=== PATIENT | female | born 1975 | race Caucasian/White ===

== ENCOUNTER 2018-06-06 10:13 | Inpatient (IN) | payer BC ==
[~2018-06-06] VITALS: Ht 165.1 cm; Wt 116.3 kg
[~2018-06-06 10:13] MED LIST: CELEXA40 MG PO; METOPROLOL SUCC25 MG PO
[2018-06-06] MEDS ORDERED: MORPHINE SULFATE 2 MG/ML SYR IV STA (10:30)
[2018-06-06] MEDS ORDERED: ACETAMINOPHEN 1000 MG/100 ML IV STA (10:30)
[2018-06-06] MEDS ORDERED: CLINDAMYCIN PHOS 900MG/ D5W 50 50 ML IV STA (10:49)
[2018-06-06 10:59] LABS: BASOPHILS % 0.2 % (0.0-1.0); EOSINOPHILS # (AUTO) 0.1 (0.0-0.4); EOSINOPHILS % 0.7 % (0.0-6.0); HEMATOCRIT 36.9 % (34.2-44.1); HEMOGLOBIN 12.6 g/dL (12.0-16.0); LYMPHOCYTES % 10.8 % (18.0-39.1); MEAN CORPUSCULAR HEMOGLOBIN 30.3 pg (28-32); MEAN CORPUSCULAR HGB CONC 34.1 g/dL (31-35); MEAN CORPUSCULAR VOLUME 88.7 fL (81-99); MONOCYTES % 11.2 % (4.4-11.3); NEUTROPHILS # (AUTO) 6.8 (2.1-6.9); NEUTROPHILS % 76.6 % (38.7-80.0); PLATELET COUNT 229 x10e3/uL (140-360); RED BLOOD COUNT 4.16 x10e6/uL (3.6-5.1); RED CELL DISTRIBUTION WIDTH 13.2 % (11.7-14.4)
[2018-06-06] MEDS ORDERED: DEXAMETHASONE SOD PHOS 10 MG/1 ML VIAL IV ONE (11:00)
[2018-06-06 11:16] LABS: ALANINE AMINOTRANSFERASE 7 IU/L (0-55); ALBUMIN 3.1 g/dL (3.5-5.0); ALKALINE PHOSPHATASE 52 IU/L (40-150); ANION GAP 12.3 mmol/L (8-16); BLOOD UREA NITROGEN 6 mg/dL (7-26); BUN/CREATININE RATIO 8 (6-25); CALCIUM 8.8 mg/dL (8.4-10.2); CARBON DIOXIDE 24 mmol/L (22-29); CHLORIDE 101 mmol/L (98-107); CREATININE, SERUM 0.79 mg/dL (0.57-1.11); EST GLOMERULAR FILTRATION RATE > 60 ML/MIN (60-); GLUCOSE 106 mg/dL (74-118); POTASSIUM 3.3 mmol/L (3.5-5.1); SODIUM 134 mmol/L (136-145)
[2018-06-06] MEDS ORDERED: SODIUM CHLORIDE 0.9% 1000ML 1,000 ML IV SCH (11:45)
[2018-06-06 12:24] LABS: BILIRUBIN,URINE 2+ (NEGATIVE); CLARITY,URINE HAZY (CLEAR); COLOR,URINE YELLOW (YELLOW); KETONES,URINE 1+ (NEGATIVE); LEUKOCYTE ESTERASE ,URINE NEGATIVE (NEGATIVE); NITRITE,URINE NEGATIVE (NEGATIVE); PROTEIN,URINE DIPSTICK 1+ (NEGATIVE); URINE UROBILINOGEN 0.2 mg/dL (0.2 - 1)
[2018-06-06 12:33] LABS: EPITHELIAL CELLS,URINE MANY /LPF
[2018-06-06 12:35] LABS: WBC,URINE (MAN) 0-5 /HPF (0-5)
[2018-06-06 12:36] LABS: BACTERIA,URINE FEW /HPF; CALCIUM OXALATE CRYSTALS,UR FEW (FEW); RBC,URINE 0-5 /HPF (0-5)
[2018-06-06 12:37] LABS: MUCUS,URINE FEW (RARE)
--- NOTE | 2018-06-06 12:53 | Diagnostic Imaging Report ---
ADDENDUM #1 The preliminary report was reviewed and a final report issued by Dr. Garcia neuroradiologist on 06/06/2018 at 4:46 PM. Signed by: Dr. Lorie Garcia M.D. on 06/06/2018 4:46 PM ORIGINAL REPORT EXAMINATION: CT of the neck with contrast HISTORY: 43-year-old female with right lower jaw/neck swelling. Rule out mass. COMPARISON: None TECHNIQUE: Multidetector helical axial images were obtained from the sternal notch through the skull base during intravenous infusion of iodinated contrast material. Images were reconstructed using soft tissue and bone algorithms and were viewed in multiplanar format. Intravenous contrast: 100 cc of Isovue-370. Dose modulation, iterative reconstruction, and/or weight based adjustment of the mA/kV was utilized to reduce the radiation dose to as low as reasonably achievable. FINDINGS: A moderate-sized periapical lucency surrounds the roots of the right second mandibular molar without buccal cortical disruption. The periapical abscess appears to be contiguous with the right inferior alveolar foramen. Multiple teeth are missing and the remaining dentition is carious. The soft tissue overlying the buccal cortex of the right mandible is enhancing, but there is no discrete fluid collection. Diffuse fat stranding and soft tissue swelling throughout the right premaxillary, right perimandibular and right submandibular soft tissues. Inflammation also extends into the proximal right neck. The right masseter is slightly enlarged compared to the left, likely secondary to surrounding inflammatory changes. Mass: None. Nodes: Scattered reactive lymphadenopathy along the right internal jugular chain. For example, a 12 mm round enhancing lymph node in the level IIA. Sinuses: Retention cyst in the left maxillary sinus may be odontogenic in nature secondary to eruption of the left second and third maxillary molar roots to the floor of the sinus. Salivary glands: Parotid and submandibular glands unremarkable. Pharynx: Unremarkable. Larynx: Unremarkable. Thyroid gland: 11 mm hypodense nodule is superior pole of the right thyroid lobe. Upper esophagus: Unremarkable. Blood vessels: Unremarkable. Bones: Unremarkable. IMPRESSION: Right-sided facial cellulitis is likely secondary to periapical abscess surrounding the right second mandibular molar. No drainable fluid collection. Preliminary report dictated by Dr. Roxy Varma, Neuroradiology Fellow. A final report by the attending radiologist will follow. Signed by: Roxy Varma MD on 06/06/2018 12:53 PM
[2018-06-06] MEDS ORDERED: SODIUM CHLORIDE 0.9% 50ML 50 ML ONE (14:50)
[2018-06-06] MEDS ORDERED: IOPAMIDOL 370 MG/ML 200 ML INFUS..BTL INJ ONE (14:50)
[2018-06-06] MEDS: CEFEPIME HCL 1 GM VIAL IV SCH (15:14)
[2018-06-06] MEDS: VANCOMYCIN 1GM/NS 250 ML 250 ML IV SCH (15:14)
[2018-06-06 15:50] VITALS: BP 141/90
[2018-06-06 15:59] VITALS: BP 141/90
[2018-06-06 16:00] VITALS: BP 141/90
[2018-06-06 16:46] VITALS: BP 141/90
[2018-06-06] MEDS: ONDANSETRON HCL INJ 2 MG/ML VIAL IV PRN ×2 (16:52→22:26)
[2018-06-06] MEDS: MORPHINE SULFATE 2 MG/ML SYR IV PRN ×2 (16:52→22:26)
[2018-06-06 21:17] VITALS: BP 120/70
[2018-06-07 00:19] VITALS: BP 121/64
[2018-06-07] MEDS: MORPHINE SULFATE 2 MG/ML SYR IV PRN ×2 (03:38→09:17)
[2018-06-07 05:07] VITALS: BP 134/70
[2018-06-07 08:00] VITALS: BP 151/82
--- NOTE | 2018-06-07 08:55 | History and Physical ---
PRIMARY CARE PHYSICIAN: Dr. Dc CHIEF COMPLAINT: Right jaw swelling and pain. HISTORY OF PRESENT ILLNESS: This is a 43-year-old woman with a history of cigarette use, now developing right jaw swelling and pain for the past 3 days. She went to a dentist. The dentist was unable to gain much access to the dental caries and recommend to go to the hospital due to the swelling and infection. The patient admits to having dental caries on the right side for quite some time. She has had some subjective fever and chills at home and some nausea. She has been referred for further evaluation and management. PAST MEDICAL HISTORY: Hypertension, cigarette use, mood disorder. PAST SURGICAL HISTORY: , back injections and leg surgery. ALLERGIES: PER ELECTRONIC MEDICAL RECORD. FAMILY/SOCIAL HISTORY: The patient is . She has 2 children. No alcohol or illicits. Smokes a pack of cigarettes per day. MEDICATIONS: Per electronic medical record. REVIEW OF SYSTEMS: Denies any dizziness, chest pain, shortness of breath, back pain, headache, blurred vision or cough. PHYSICAL EXAMINATION VITAL SIGNS: Have been reviewed. T-max is 101.4. Heart rate as low as 53. GENERAL: A tired-appearing woman resting in bed. HEENT: She has edema of the right jaw. The right cheek region is swollen. Minimal erythema. There is tenderness. Unable to palpate lymph nodes in the submandibular region due to tenderness. Unable to visually observe the actual site of infection as the patient has limited ability to open her mouth at this time. CARDIOVASCULAR: Normal S1 and S2. LUNGS: Moderate breath sounds. ABDOMEN: Soft, nontender, nondistended. EXTREMITIES: No edema or calf tenderness. NEUROLOGIC: Alert, oriented times 3, moving all extremities. SKIN: Dry. PSYCHIATRIC: Normal affect. LABS: Reviewed. MEDICATIONS: Reviewed. ASSESSMENT: A 43-year-old woman. 1. Periapical dental abscess. 2. Cellulitis of the chin. 3. Cellulitis of the lip. 4. Hypertension. 5. Cigarette use. 6. Systemic inflammatory response syndrome but not sepsis. 7. Hypokalemia. 8. Morbid obesity. 9. Mood disorder. PLAN 1. Continue IV cefepime. 2. Continue IV vancomycin. 3. Follow blood cultures. 4. Follow delimber operator's recommendations. 5. Refusing nicotine patch. 6. Screen for diabetes and obtain lipid panel. 7. Continue beta jasmine. 8. Continue citalopram. 9. Use SCD for DVT prophylaxis. 10. Add IV steroids to reduce swelling. Job#: [id number]
[2018-06-07] MEDS: METHYLPREDNISOLONE SOD SUCC 40 MG/ML VIAL IV SCH ×2 (09:00→21:02)
[2018-06-07 09:27] LABS: CHOL/HDL RATIO 2.7 (3.0-3.6)
[2018-06-07] MEDS ORDERED: HYDROMORPHONE 20MG/ NS 100ML IV PRN (10:30)
[2018-06-07] MEDS: HYDROMORPHONE 1MG/1ML INJ IV PRN ×3 (10:50→21:02)
[2018-06-07 12:00] VITALS: BP 127/78
[2018-06-07] MEDS: CEFEPIME HCL 1 GM VIAL IV SCH (14:12)
[2018-06-07] MEDS: VANCOMYCIN 1GM/NS 250 ML 250 ML IV SCH (14:12)
[2018-06-07 16:00] VITALS: BP 135/74
[2018-06-08 00:12] VITALS: BP 155/90
[2018-06-08 05:15] VITALS: BP 144/96
[2018-06-08 07:15] VITALS: BP 148/71
[2018-06-08] MEDS: METHYLPREDNISOLONE SOD SUCC 40 MG/ML VIAL IV SCH ×2 (09:00→21:13)
[2018-06-08 09:42] VITALS: BP 148/71
[2018-06-08] MEDS: VANCOMYCIN 1GM/NS 250 ML 250 ML IV SCH (14:24)
[2018-06-08] MEDS: CEFEPIME HCL 1 GM VIAL IV SCH (14:24)
[2018-06-08 17:33] VITALS: BP 157/86
[2018-06-08] MEDS: HYDROMORPHONE 1MG/1ML INJ IV PRN (17:52)
--- NOTE | 2018-06-08 19:51 | Consultation ---
DATE OF CONSULTATION: June 08, 2018 HISTORY OF PRESENT ILLNESS: This 43-year-old woman presented with a 3 day history of progressive right jaw pain and swelling. There is noted dental caries on the right mandibular molar tooth. Admission CT scan demonstrated cellulitis without abscess formation. She is started on antibiotic and steroid therapy with significant improvement since initiation of therapy. PAST MEDICAL HISTORY AND PAST SURGICAL HISTORY: Reviewed in detail in the chart. REVIEW OF SYSTEMS: Otolaryngological review of systems is noncontributory. PHYSICAL EXAMINATION: Tympanic membranes and external auditory canals are normal. Nasal examination is noncontributory. Oral cavity examination shows moderate trismus. The right lower molar tooth has severe dental caries. There is generalized swelling or tenderness over the right lower mandible extending into the right submandibular region. There is a fluctuance noted. ASSESSMENT: Right lower molar periapical abscess with surrounding cellulitis with no drainable abscess formation. PLAN: 1. Continuation of current IV antibiotic and steroid therapy. 2. Will follow and consider incision and drainage based on clinical course. Job#: [id number]
[2018-06-08 20:50] VITALS: BP 157/86
[2018-06-09] MEDS ORDERED: MORPHINE SULFATE INJ 4 MG/ML INJ IV PRN (07:15)
[2018-06-09 07:27] LABS: BASOPHILS % 0.1 % (0.0-1.0); HEMATOCRIT 34.8 % (34.2-44.1); HEMOGLOBIN 11.5 g/dL (12.0-16.0); LYMPHOCYTES # (AUTO) 1.1 (1.0-3.2); MEAN CORPUSCULAR HEMOGLOBIN 30.1 pg (28-32); MEAN CORPUSCULAR VOLUME 91.1 fL (81-99); MONOCYTES # (AUTO) 0.6 (0.2-0.8); MONOCYTES % 5.8 % (4.4-11.3); NEUTROPHILS # (AUTO) 8.2 (2.1-6.9); NEUTROPHILS % 82.4 % (38.7-80.0); PLATELET COUNT 225 x10e3/uL (140-360); RED BLOOD COUNT 3.82 x10e6/uL (3.6-5.1); RED CELL DISTRIBUTION WIDTH 13.3 % (11.7-14.4)
[2018-06-09 07:42] LABS: BLOOD UREA NITROGEN 11 mg/dL (7-26); BUN/CREATININE RATIO 14 (6-25); CALCIUM 9.1 mg/dL (8.4-10.2); CARBON DIOXIDE 26 mmol/L (22-29); CHLORIDE 106 mmol/L (98-107); CREATININE, SERUM 0.78 mg/dL (0.57-1.11); EST GLOMERULAR FILTRATION RATE > 60 ML/MIN (60-); GLUCOSE 116 mg/dL (74-118); SODIUM 140 mmol/L (136-145)
[2018-06-09 08:00] VITALS: BP 160/90
[2018-06-09] MEDS: HYDRALAZINE HCL 25 MG TAB PO SCH ×3 (09:14→21:15)
[2018-06-09] MEDS: METHYLPREDNISOLONE SOD SUCC 40 MG/ML VIAL IV SCH ×2 (09:14→21:17)
[2018-06-09 09:15] VITALS: BP 160/90
[2018-06-09 12:00] VITALS: BP 160/90
[2018-06-09] MEDS: VANCOMYCIN 1GM/NS 250 ML 250 ML IV SCH (15:00)
[2018-06-09] MEDS: CEFEPIME HCL 1 GM VIAL IV SCH (15:00)
[2018-06-09 16:00] VITALS: BP 134/68
--- NOTE | 2018-06-09 19:58 | Progress Note ---
DATE: June 08, 2018 TIME OF SERVICE: 7:15 a.m. SUBJECTIVE: Overnight feeling a little better. Less swelling of the face . REVIEW OF SYSTEMS: Denies any dizziness, chest pain. PHYSICAL EXAMINATION VITAL SIGNS: Reviewed. GENERAL: A tired-appearing woman resting in bed. HEENT: She has edema and tenderness on the right cheek region, right jaw. CARDIOVASCULAR: Normal S1 and S2. LUNGS: Moderate breath sounds. ABDOMEN: Soft, nontender, nondistended. EXTREMITIES: No edema. SKIN: Dry. PSYCHIATRIC: Normal affect. LABS: Reviewed. MEDICATIONS: Reviewed. ASSESSMENT: A 43-year-old woman. 1. Periapical abscess. 2. Cellulitis of the right chin region. 3. Hypertension. 4. Cigarette use. 5. Systemic inflammatory response syndrome but not sepsis. 6. Hypokalemia. 7. Morbid obesity. 8. Mood disorder. PLAN 1. Continue IV antibiotics. 2. Follow up ENT recommendations. 3. Continue beta jasmine. 4. Continue IV steroids. Job#: [id number]
--- NOTE | 2018-06-09 20:13 | Progress Note ---
DATE: June 09, 2018 TIME: 7:15 a.m. SUBJECTIVE: Overnight, feeling a little better. REVIEW OF SYSTEMS: Denies any dizziness, chest pain. OBJECTIVE VITAL SIGNS: Reviewed. GENERAL: A tired appearing woman, resting in bed. HEENT: Anicteric. She has right jaw with less edema and less tenderness. CARDIOVASCULAR: Normal S1, S2. LUNGS: Moderate breath sounds. ABDOMEN: Soft, nontender, nondistended. EXTREMITIES: No edema or calf tenderness. NEUROLOGICAL: Alert and oriented times 3. Moves all extremities. LABS: Reviewed. MEDICATIONS: Reviewed. ASSESSMENT: This is a 43-year-old woman with, 1. Periapical dental abscess. 2. Cellulitis of the chin. 3. Hypertension. 4. Cigarette use. 5. Systemic inflammatory response syndrome without sepsis. 6. Hypokalemia. 7. Morbid obesity. 8. Mood disorder. 9. Hypertension. PLAN 1. Continue IV antibiotics. 2. The patient is improving. 3. Start hydralazine. 4. Cultures remain negative. 5. Discharge planning. Job#: [id number]
[2018-06-09 20:41] VITALS: BP 131/79
[2018-06-09 21:00] VITALS: BP 131/79
[2018-06-10 00:41] VITALS: BP 149/80
[2018-06-10 06:34] VITALS: BP 184/95
[2018-06-10] MEDS ORDERED: PREDNISONE20 MG PO (07:11)
[2018-06-10] MEDS ORDERED: HYDRALAZINE HCL25 MG PO (07:11)
[2018-06-10] MEDS ORDERED: CLINDAMYCIN HC150 MG PO (07:11)
[2018-06-10] MEDS ORDERED: CIPRO500 MG PO (07:11)
[2018-06-10 07:15] VITALS: BP 115/73
--- NOTE | 2018-06-10 07:42 | Discharge Summary ---
PRINCIPAL DIAGNOSES 1. Periapical dental abscess on the right. 2. Cellulitis of the chin. 3. Hypertension. 4. Cigarette use. 5. Systemic inflammatory response syndrome without sepsis. 6. Hypokalemia. 7. Morbid obesity. 8. Mood disorder. SECONDARY DIAGNOSIS: Hypertension. CHIEF COMPLAINT: Right jaw pain and swelling. HISTORY OF PRESENT ILLNESS: A 43-year-old woman with right jaw pain and swelling. Refer to the H and P for further details. HOSPITAL COURSE: The patient was found to have periapical dental abscess on the right and cellulitis of the chin. Received IV vancomycin and IV cefepime. Also, received IV Solu-Medrol and did well. Did not require any surgical procedure. Cultures remained negative. There is no leukocytosis. The patient is doing better and currently appropriate for discharge and followup. DISCHARGE MEDICATIONS: Per electronic medical record that include ciprofloxacin and clindamycin for 14 days and prednisone for 5 days 20 mg. CONDITION ON DISCHARGE: Stable and improving. DISCHARGE LOCATION: Home. FOLLOWUP: Primary care doctor in 1 week. Follow up with dentist later this week. TERRANCE SARAH MD Job#: [id number] [place]
[2018-06-10 08:24] VITALS: BP 115/73
[2018-06-10] MEDS: METHYLPREDNISOLONE SOD SUCC 40 MG/ML VIAL IV SCH (08:56)
[2018-06-10] MEDS ORDERED: HYDRALAZINE HCL 25 MG TAB PO SCH (09:00)
== END 2018-06-10 09:32 | disposition home or self-care (01) | DRG 158 ==
LOC: ER 10:13 → ERHOLD 14:19 → MED/SURG2 15:28
PROVIDERS: ADMIT Internal Medicine; ATTEND Internal Medicine
DX: K04.7 Periapical abscess without sinus (principal); L03.211 Cellulitis of face; Z68.41 Body mass index [BMI] 40.0-44.9, adult; K13.0 Diseases of lips; Z72.0 Tobacco use; E66.01 Morbid (severe) obesity due to excess calories; F39 Unspecified mood [affective] disorder; I10 Essential (primary) hypertension; F41.9 Anxiety disorder, unspecified; E87.6 Hypokalemia; K02.9 Dental caries, unspecified
CPT/HCPCS: 36415; 70491; 80048; 80053; 80061; 81001; 83036; 83605; 84702; 85025; 87040; 87070; 87205; 99284; J0692; J1100; J1170; J2270; J2405; J2920; J3370; J7030; Q9967